=== PATIENT | female | born 1955 | race Caucasian/White ===

== ENCOUNTER 2016-11-20 12:15 | Emergency (ER) | payer MEDICARE ==
--- NOTE | 2016-11-20 13:59 | EDM.PDOC ---
ED HPI GENERAL MEDICAL PROBLEM - General Chief Complaint: Gastrointestinal Problem Stated Complaint: DIARRHEA Time Seen by Provider: 11/20/16 13:33 Source of Information: Reports: Patient History Limitations: Reports: No Limitations - History of Present Illness INITIAL COMMENTS - FREE TEXT/NARRATIVE: This lady comes in complaining of diarrhea. It's been going on for a couple of days. She's under a great deal of stress because she has a lunch of family members including teenage boys staying with her and [place]. She had the same thing happened a couple of years ago when everybody visited and she was treated with Lomotil and Ativan and it worked well. She denies fever there is no blood in the diarrhea. She does not feel dehydrated. 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 [employer] History: Reports: Psychiatric History: Reports: Anxiety - Infectious Disease History Infectious Disease History: Reports: Chicken Pox Social & Family History - Family History Family Medical History: Noncontributory - Tobacco Use Smoking Status *Q: Current Some Day Smoker Years of Tobacco use: 40 Packs/Tins Daily: 3 Second Hand Smoke Exposure: Yes - Caffeine Use Caffeine Use: Reports: None - Alcohol Use Days Per Week of Alcohol Use: 0 - Recreational Drug Use Recreational Drug Use: No ED ROS GENERAL - Review of Systems Review Of Systems: ROS reveals no pertinent complaints other than HPI. ED EXAM, GI/ABD - Physical Exam Exam: See Below Exam Limited By: No Limitations General Appearance: Alert, WD/WN, Anxious Eyes: Bilateral: Normal Appearance Respiratory/Chest: Lungs Clear Cardiovascular: Regular Rate, Rhythm GI/Abdominal: Non-Tender Neurological: Alert Psychiatric: Normal Affect, Anxious Skin Exam: Warm, Dry Course - Vital Signs Last Recorded V/S: Last Vital Signs Temp 35.5 C 11/20/16 12:48 Pulse 101 H 11/20/16 12:48 Resp 16 11/20/16 12:48 BP 157/70 H 11/20/16 12:48 Pulse Ox 97 11/20/16 12:48 Departure - Departure Time of Disposition: 13:57 Disposition: Home, Self-Care 01 Condition: Fair Clinical Impression: Diarrhea, Acute anxiety - Discharge Information Forms: ED Department Discharge Additional Instructions: For anxiety take Ativan 0.5 mg one or 2 tablets every 8 hours as needed, #15 dispensed. For diarrhea you may take Lomotil one or 2 tablets 4 times a day. # 15 dispensed. Be sure to drink plenty of liquids. Both medications can cause sedation and impair driving. Avoid any alcohol. See if no better in 2 or 3 days
== END 2016-11-20 14:25 | disposition home or self-care (01) ==
LOC: JP.ED 12:15
DX: R19.7 Diarrhea, unspecified (principal); F41.9 Anxiety disorder, unspecified; F17.210 Nicotine dependence, cigarettes, uncomplicated
CPT/HCPCS: 99283; 99284